=== PATIENT | female | born 1980 | race African-American/Black ===

== ENCOUNTER 2016-12-06 11:16 | Emergency (ER) | payer MEDICAID ==
[~2016-12-06] VITALS: Ht 165.1 cm; Wt 111.9 kg
[2016-12-06 13:12] VITALS: BP 134/83
== END 2016-12-06 13:20 | disposition home or self-care (01) ==
LOC: ED 13:05
DX: J20.8 Acute bronchitis due to other specified organisms (principal); J00 Acute nasopharyngitis [common cold]; J45.909 Unspecified asthma, uncomplicated
CPT/HCPCS: 36415; 71020; 80047; 99285